=== PATIENT | male | born 1965 | race Caucasian/White ===

== ENCOUNTER 2018-07-19 20:55 | Observation (INO) ==
[2018-07-19] MEDS ORDERED: ALBUTEROL/IPRATROPIUM 3 ML NEB RESP TX STA (21:24)
[2018-07-19 21:50] LABS: ABG Base Excess 1.8 MMOL/L (-2.5-2.5); ABG Oxygen Saturation 96.4 % (95-100); ABG PCO2 38.8 MM HG (35-48); ABG PH 7.434 (7.35-7.45); ABG TCO2 22.6 MMOL/L (23-27); Allen Test Positive; Pt O2 Delivery Device Room Air
[2018-07-19 22:03] LABS: Basophils # 0.1 10*3/uL (0.0-0.2); Basophils % 0.5 % (0.0-0.8); Eosinophils # 0.1 10*3/uL (0.0-0.87); Hemoglobin 12.7 GM/DL (14.0-18.0); Immature Granulocytes % 0.5 %; Immature Granulocytes Absolute 0.05 #; Lymphocytes # 1.7 10*3/uL (1.4-4.0); Lymphocytes % 15.5 % (21.2-54.2); Mean Corpuscular HGB Conc 33.4 GM/DL (32-36); Mean Corpuscular Hemoglobin 31 PG (27-34); Mean Corpuscular Volume 93.8 FL (87-102); Mean Platelet Volume 9.9 FL (9.6-12.0); Monocytes # 0.6 10*3/uL (0.11-0.8); Monocytes % 5.4 % (1.7-12.7); Neutrophils # 8.4 10*3/uL (1.4-7.4); Neutrophils % 77.1 % (38.7-73.9); Platelet Count 190 T/CUMM (130-400); Red Blood Count 4.05 MC/CUMM (3.8-5.5); Red Cell Distribution Width 12.9 % (9.3-17.3); White Blood Count 10.9 T/CUMM (4-12)
[2018-07-19 22:24] LABS: Alanine Aminotransferase 15 U/L (16-61); Albumin 3.4 G/DL (3.4-5.0); Alkaline Phosphatase 76 U/L (45-117); Aspartate Amino Transferase 13 U/L (0-37); Bilirubin,Total < 0.39 MG/DL (0.2-1.0); Blood Urea Nitrogen 12 MG/DL (7-18); Calcium 8.3 MG/DL (8.5-10.1); Glucose 146 MG/DL (74-106); Osmolality,Calculated 283.3 MOS/KG (273-304); Potassium 3.6 MMOL/L (3.5-5.1); Sodium 141 MMOL/L (136-145); Total Protein 6.8 G/DL (6.4-8.3)
[2018-07-19] MEDS ORDERED: NITROGLYCERIN SL 0.4 MG TABLET SL STA (22:29)
[2018-07-19] MEDS ORDERED: ASPIRIN EC 325 MG TABLET PO STA (22:29)
[2018-07-20] MEDS ORDERED: ENOXAPARIN 30 MG/0.3 ML SYRINGE SUBCUT STA (00:19)
[2018-07-20] MEDS ORDERED: ENOXAPARIN 80 MG/0.8 ML SYRINGE SUBCUT ONE (00:33)
[2018-07-20] MEDS ORDERED: ONDANSETRON 4 MG/2 ML VIAL IV PRN (02:04)
[2018-07-20] MEDS ORDERED: ACETAMINOPHEN 325 MG TABLET PO PRN (02:04)
[2018-07-20 04:26] LABS: Albumin 3.5 G/DL (3.4-5.0); Bilirubin,Total 0.6 MG/DL (0.2-1.0); Calcium 8.8 MG/DL (8.5-10.1); Osmolality,Calculated 276.5 MOS/KG (273-304); Potassium 3.8 MMOL/L (3.5-5.1); Risk Ratio 3.81; Thyroid Stimulating Hormone 0.664 uIU/ml (0.358-3.74); Total Protein 6.6 G/DL (6.4-8.3); VLDL CHOLESTEROL 37.6 MG/DL
[2018-07-20] MEDS: ASPIRIN 325 MG TABLET PO SCH (10:12)
[2018-07-20] MEDS: CARVEDILOL 3.125 MG TABLET PO SCH ×2 (10:12→21:23)
[2018-07-20] MEDS: amLODIPine 5 MG TABLET PO SCH (15:05)
[2018-07-20] MEDS ORDERED: NICOTINE 14 MG/24 HR PATCH TRANSDERM PRN (15:29)
[2018-07-21] MEDS: CARVEDILOL 3.125 MG TABLET PO SCH (08:35)
[2018-07-21] MEDS: ASPIRIN 325 MG TABLET PO SCH (08:35)
[2018-07-21] MEDS: amLODIPine 5 MG TABLET PO SCH (08:35)
[2018-07-21 08:39] VITALS: BP 166/79
== END 2018-07-21 10:06 | disposition home or self-care (01) ==
LOC: N.EDINP 20:55 → N.ED 20:55 → SUATTDRO 07-20 01:02 → N.TELEN 07-20 01:45
PROVIDERS: ADMIT Internal Medicine Geriatric Medicine; ATTEND Internal Medicine Cardiovascular Disease

== ENCOUNTER 2018-08-08 19:10 | Inpatient (IN) ==
[2018-08-08 20:48] LABS: Basophils % 0.3 % (0.0-0.8); Eosinophils # 0.2 10*3/uL (0.0-0.87); Eosinophils % 1.9 % (0.00-10.9); Hematocrit 43.3 VOL% (42.0-52.0); Hemoglobin 14.2 GM/DL (14.0-18.0); Immature Granulocytes % 0.3 %; Immature Granulocytes Absolute 0.03 #; Lymphocytes # 2.6 10*3/uL (1.4-4.0); Lymphocytes % 26.9 % (21.2-54.2); Mean Corpuscular HGB Conc 32.8 GM/DL (32-36); Mean Corpuscular Hemoglobin 31 PG (27-34); Mean Corpuscular Volume 95.6 FL (87-102); Monocytes # 0.5 10*3/uL (0.11-0.8); Monocytes % 5.5 % (1.7-12.7); Neutrophils # 6.3 10*3/uL (1.4-7.4); Neutrophils % 65.1 % (38.7-73.9); Platelet Count 247 T/CUMM (130-400); Red Blood Count 4.53 MC/CUMM (3.8-5.5); Red Cell Distribution Width 12.9 % (9.3-17.3); White Blood Count 9.7 T/CUMM (4-12)
[2018-08-08 20:56] LABS: PT Patient Result 10.7 SECS; Partial Thromboplastin Time 35.8 SECS (0-40)
[2018-08-08] MEDS ORDERED: ONDANSETRON 4 MG/2 ML VIAL IV PRN (21:13)
[2018-08-08] MEDS ORDERED: MORPHINE 4 MG/1 ML VIAL IV PRN (21:13)
[2018-08-08 21:26] LABS: Alanine Aminotransferase 19 U/L (16-61); Albumin 3.5 G/DL (3.4-5.0); Alkaline Phosphatase 79 U/L (45-117); Aspartate Amino Transferase 18 U/L (0-37); Bilirubin,Total < 0.39 MG/DL (0.2-1.0); Blood Urea Nitrogen 17 MG/DL (7-18); Calcium 8.9 MG/DL (8.5-10.1); Glucose 88 MG/DL (74-106); Osmolality,Calculated 275.7 MOS/KG (273-304); Potassium 4.7 MMOL/L (3.5-5.1); Sodium 138 MMOL/L (136-145); Total Protein 6.8 G/DL (6.4-8.3)
[2018-08-09] MEDS: ENOXAPARIN 60 MG/0.6 ML SYRINGE SUBCUT SCH ×2 (05:25→17:08)
[2018-08-09] MEDS: NITROGLYCERIN 2% OINT 1 INCH/GM PACK TOP SCH ×4 (05:33→18:17)
[2018-08-09 05:48] LABS: Risk Ratio 5.48; VLDL CHOLESTEROL 54.6 MG/DL
[2018-08-09] MEDS: CARVEDILOL 3.125 MG TABLET PO SCH ×2 (10:01→17:08)
[2018-08-09] MEDS: amLODIPine 5 MG TABLET PO SCH ×2 (10:01→14:18)
[2018-08-09] MEDS: ASPIRIN EC 325 MG TABLET PO SCH ×2 (10:01→14:17)
[2018-08-09] MEDS ORDERED: CLOPIDOGREL 300 MG TABLET PO ONE (13:57)
[2018-08-09] MEDS: ROSUVASTATIN 20 MG TABLET PO SCH (14:18)
[2018-08-09] MEDS ORDERED: ATORVASTATIN 40 MG TABLET PO SCH (21:00)
[2018-08-10] MEDS: NITROGLYCERIN 2% OINT 1 INCH/GM PACK TOP SCH ×4 (01:15→17:59)
[2018-08-10] MEDS: ENOXAPARIN 60 MG/0.6 ML SYRINGE SUBCUT SCH ×2 (06:09→17:58)
[2018-08-10] MEDS: ROSUVASTATIN 20 MG TABLET PO SCH (09:56)
[2018-08-10] MEDS: ASPIRIN EC 325 MG TABLET PO SCH (09:56)
[2018-08-10] MEDS: CLOPIDOGREL 75 MG TABLET PO SCH (09:56)
[2018-08-10] MEDS: amLODIPine 5 MG TABLET PO SCH (09:56)
[2018-08-10] MEDS: buPROPion SR 150 MG TABLET PO SCH (09:59)
[2018-08-10] MEDS: NICOTINE 21 MG/24 HR PATCH TRANSDERM SCH (09:59)
[2018-08-10] MEDS: CARVEDILOL 3.125 MG TABLET PO SCH ×2 (10:00→17:59)
[2018-08-11] MEDS: NITROGLYCERIN 2% OINT 1 INCH/GM PACK TOP SCH ×4 (01:04→18:04)
[2018-08-11] MEDS: ENOXAPARIN 60 MG/0.6 ML SYRINGE SUBCUT SCH ×2 (05:44→18:00)
[2018-08-11] MEDS: ASPIRIN EC 325 MG TABLET PO SCH (09:06)
[2018-08-11] MEDS: buPROPion SR 150 MG TABLET PO SCH (09:06)
[2018-08-11] MEDS: amLODIPine 5 MG TABLET PO SCH (09:06)
[2018-08-11] MEDS: ROSUVASTATIN 20 MG TABLET PO SCH (09:06)
[2018-08-11] MEDS: NICOTINE 21 MG/24 HR PATCH TRANSDERM SCH (09:07)
[2018-08-11] MEDS: CARVEDILOL 3.125 MG TABLET PO SCH ×2 (09:07→18:00)
[2018-08-11] MEDS: CLOPIDOGREL 75 MG TABLET PO SCH (09:12)
[2018-08-12] MEDS: NITROGLYCERIN 2% OINT 1 INCH/GM PACK TOP SCH ×2 (00:48→05:40)
[2018-08-12] MEDS: ENOXAPARIN 60 MG/0.6 ML SYRINGE SUBCUT SCH (05:40)
[2018-08-12 06:30] LABS: Basophils # 0.1 10*3/uL (0.0-0.2); Basophils % 0.8 % (0.0-0.8); Eosinophils # 0.2 10*3/uL (0.0-0.87); Eosinophils % 3.8 % (0.00-10.9); Hematocrit 42.1 VOL% (42.0-52.0); Hemoglobin 13.7 GM/DL (14.0-18.0); Immature Granulocytes % 0.3 %; Immature Granulocytes Absolute 0.02 #; Lymphocytes # 2.5 10*3/uL (1.4-4.0); Lymphocytes % 40.5 % (21.2-54.2); Mean Corpuscular HGB Conc 32.5 GM/DL (32-36); Mean Corpuscular Hemoglobin 31 PG (27-34); Mean Corpuscular Volume 94.4 FL (87-102); Mean Platelet Volume 10.1 FL (9.6-12.0); Monocytes # 0.4 10*3/uL (0.11-0.8); Neutrophils # 2.9 10*3/uL (1.4-7.4); Neutrophils % 47.6 % (38.7-73.9); Platelet Count 215 T/CUMM (130-400); Red Blood Count 4.46 MC/CUMM (3.8-5.5); Red Cell Distribution Width 12.6 % (9.3-17.3); White Blood Count 6.1 T/CUMM (4-12)
[2018-08-12 06:53] LABS: Calcium 9.2 MG/DL (8.5-10.1); Osmolality,Calculated 276.4 MOS/KG (273-304); Potassium 4.1 MMOL/L (3.5-5.1)
[2018-08-12] MEDS ORDERED: diphenhydrAMINE CAP 50 MG CAPSULE PO ONE (07:27)
[2018-08-12] MEDS ORDERED: DIAZEPAM 5 MG TABLET PO ONE (07:27)
[2018-08-12] MEDS: CARVEDILOL 3.125 MG TABLET PO SCH (07:35)
[2018-08-12] MEDS: amLODIPine 5 MG TABLET PO SCH ×2 (07:37→09:22)
[2018-08-12] MEDS: CLOPIDOGREL 75 MG TABLET PO SCH (07:38)
[2018-08-12] MEDS ORDERED: LIDOCAINE 1% 20 ML VIAL ONE (07:48)
[2018-08-12] MEDS ORDERED: MIDAZOLAM 2 MG/2 ML VIAL ONE (07:49)
[2018-08-12] MEDS ORDERED: HYDROmorphone 2 MG/1 ML VIAL ONE (07:55)
[2018-08-12] MEDS: NICOTINE 21 MG/24 HR PATCH TRANSDERM SCH (09:22)
[2018-08-12] MEDS: ASPIRIN CHEW 81 MG TABLET PO SCH (09:24)
[2018-08-12] MEDS: buPROPion SR 150 MG TABLET PO SCH (09:24)
[2018-08-12] MEDS: ROSUVASTATIN 20 MG TABLET PO SCH (09:24)
[2018-08-12] MEDS: CARVEDILOL 6.25 MG TABLET PO SCH ×2 (09:37→22:09)
[2018-08-12] MEDS: ISOSORBIDE MONONITRATE 30 MG TABLET PO SCH (09:39)
[2018-08-12] MEDS ORDERED: CARVEDILOL 3.125 MG TABLET PO ONE (10:00)
[2018-08-13 04:28] LABS: Basophils # 0.1 10*3/uL (0.0-0.2); Basophils % 0.7 % (0.0-0.8); Eosinophils # 0.3 10*3/uL (0.0-0.87); Eosinophils % 3.9 % (0.00-10.9); Hemoglobin 12.1 GM/DL (14.0-18.0); Immature Granulocytes % 0.4 %; Immature Granulocytes Absolute 0.03 #; Lymphocytes # 2.6 10*3/uL (1.4-4.0); Lymphocytes % 37.9 % (21.2-54.2); Mean Corpuscular HGB Conc 33.6 GM/DL (32-36); Mean Corpuscular Hemoglobin 32 PG (27-34); Mean Platelet Volume 10.3 FL (9.6-12.0); Monocytes # 0.5 10*3/uL (0.11-0.8); Neutrophils # 3.4 10*3/uL (1.4-7.4); Neutrophils % 50.1 % (38.7-73.9); Platelet Count 195 T/CUMM (130-400); Red Blood Count 3.79 MC/CUMM (3.8-5.5); Red Cell Distribution Width 12.7 % (9.3-17.3); White Blood Count 6.9 T/CUMM (4-12)
[2018-08-13 04:46] LABS: Calcium 8.5 MG/DL (8.5-10.1); Osmolality,Calculated 276.5 MOS/KG (273-304)
[2018-08-13 04:50] LABS: Blood Urea Nitrogen 14 MG/DL (7-18); Calcium 8.5 MG/DL (8.5-10.1); Glucose 86 MG/DL (74-106); Osmolality,Calculated 274.7 MOS/KG (273-304); Potassium 4.1 MMOL/L (3.5-5.1); Sodium 138 MMOL/L (136-145)
[2018-08-13 04:59] LABS: Troponin I 0.093 NG/ML (0.00-0.045)
[2018-08-13] MEDS: NICOTINE 21 MG/24 HR PATCH TRANSDERM SCH (09:52)
[2018-08-13] MEDS: CARVEDILOL 6.25 MG TABLET PO SCH (09:52)
[2018-08-13] MEDS: amLODIPine 5 MG TABLET PO SCH (09:52)
[2018-08-13] MEDS: buPROPion SR 150 MG TABLET PO SCH (09:52)
[2018-08-13] MEDS: ROSUVASTATIN 20 MG TABLET PO SCH ×2 (09:52→21:06)
[2018-08-13] MEDS: ASPIRIN CHEW 81 MG TABLET PO SCH (09:52)
[2018-08-13] MEDS: ISOSORBIDE MONONITRATE 30 MG TABLET PO SCH (09:52)
[2018-08-13] MEDS: CARVEDILOL 12.5 MG TABLET PO SCH (21:06)
[2018-08-14 05:06] LABS: Basophils # 0.1 10*3/uL (0.0-0.2); Basophils % 0.8 % (0.0-0.8); Eosinophils # 0.3 10*3/uL (0.0-0.87); Eosinophils % 4.3 % (0.00-10.9); Hematocrit 35.3 VOL% (42.0-52.0); Hemoglobin 11.5 GM/DL (14.0-18.0); Immature Granulocytes % 0.4 %; Immature Granulocytes Absolute 0.03 #; Lymphocytes # 2.5 10*3/uL (1.4-4.0); Lymphocytes % 33.9 % (21.2-54.2); Mean Corpuscular HGB Conc 32.6 GM/DL (32-36); Mean Corpuscular Hemoglobin 31 PG (27-34); Mean Corpuscular Volume 95.4 FL (87-102); Mean Platelet Volume 10.3 FL (9.6-12.0); Monocytes # 0.5 10*3/uL (0.11-0.8); Monocytes % 7.3 % (1.7-12.7); Neutrophils # 3.9 10*3/uL (1.4-7.4); Neutrophils % 53.3 % (38.7-73.9); Platelet Count 194 T/CUMM (130-400); Red Cell Distribution Width 12.7 % (9.3-17.3); White Blood Count 7.3 T/CUMM (4-12)
[2018-08-14 05:15] LABS: Calcium 8.3 MG/DL (8.5-10.1); Osmolality,Calculated 278.4 MOS/KG (273-304); Potassium 4.1 MMOL/L (3.5-5.1)
[2018-08-14] MEDS: ASPIRIN CHEW 81 MG TABLET PO SCH (09:01)
[2018-08-14] MEDS: amLODIPine 5 MG TABLET PO SCH (09:01)
[2018-08-14] MEDS: buPROPion SR 150 MG TABLET PO SCH (09:01)
[2018-08-14] MEDS: ISOSORBIDE MONONITRATE 30 MG TABLET PO SCH (09:02)
[2018-08-14] MEDS: NICOTINE 21 MG/24 HR PATCH TRANSDERM SCH (09:02)
[2018-08-14] MEDS: CARVEDILOL 12.5 MG TABLET PO SCH ×2 (09:02→20:46)
[2018-08-14] MEDS: ROSUVASTATIN 20 MG TABLET PO SCH (20:46)
[2018-08-15 05:35] LABS: Basophils # 0.1 10*3/uL (0.0-0.2); Basophils % 0.6 % (0.0-0.8); Eosinophils # 0.3 10*3/uL (0.0-0.87); Eosinophils % 3.7 % (0.00-10.9); Hematocrit 33.8 VOL% (42.0-52.0); Hemoglobin 11.3 GM/DL (14.0-18.0); Immature Granulocytes % 0.4 %; Immature Granulocytes Absolute 0.03 #; Lymphocytes # 2.4 10*3/uL (1.4-4.0); Lymphocytes % 30.3 % (21.2-54.2); Mean Corpuscular HGB Conc 33.4 GM/DL (32-36); Mean Corpuscular Hemoglobin 32 PG (27-34); Mean Corpuscular Volume 94.9 FL (87-102); Mean Platelet Volume 10.3 FL (9.6-12.0); Monocytes # 0.6 10*3/uL (0.11-0.8); Neutrophils # 4.5 10*3/uL (1.4-7.4); Platelet Count 186 T/CUMM (130-400); Red Blood Count 3.56 MC/CUMM (3.8-5.5); Red Cell Distribution Width 12.4 % (9.3-17.3); White Blood Count 7.8 T/CUMM (4-12)
[2018-08-15 05:40] LABS: Calcium 8.5 MG/DL (8.5-10.1); Osmolality,Calculated 279.4 MOS/KG (273-304); Potassium 4.2 MMOL/L (3.5-5.1)
[2018-08-15] MEDS: buPROPion SR 150 MG TABLET PO SCH (09:16)
[2018-08-15] MEDS: CARVEDILOL 12.5 MG TABLET PO SCH ×2 (09:16→21:57)
[2018-08-15] MEDS: NICOTINE 21 MG/24 HR PATCH TRANSDERM SCH (09:16)
[2018-08-15] MEDS: amLODIPine 5 MG TABLET PO SCH (09:16)
[2018-08-15] MEDS: ASPIRIN CHEW 81 MG TABLET PO SCH (09:16)
[2018-08-15] MEDS: ISOSORBIDE MONONITRATE 30 MG TABLET PO SCH (09:16)
[2018-08-15] MEDS ORDERED: GLUCAGON 1 MG VIAL IM PRN (10:02)
[2018-08-15] MEDS ORDERED: DEXTROSE 50% 25 GM/50 ML SYRINGE IV PRN (10:02)
[2018-08-15 11:08] LABS: ABG Base Excess 0.4 MMOL/L (-2.5-2.5); ABG HCO3 24.8 MMOL/L (20-26); ABG Oxygen Saturation 97.1 % (95-100); ABG PCO2 39.4 MM HG (35-48); ABG TCO2 21.9 MMOL/L (23-27); Allen Test Positive; Pt O2 Delivery Device Room Air
[2018-08-15] MEDS: SODIUM CHLORIDE 0.9% 1,000 ML IV SCH (15:39)
[2018-08-15] MEDS: ROSUVASTATIN 20 MG TABLET PO SCH (21:57)
[2018-08-15] MEDS: CHLORHEXIDINE 0.12% ORAL RINSE 60 ML BOTTLE SWISH/SPIT SCH (21:57)
[2018-08-16] MEDS: CHLORHEXIDINE 0.12% ORAL RINSE 60 ML BOTTLE SWISH/SPIT SCH ×2 (08:57→20:56)
[2018-08-16] MEDS: ISOSORBIDE MONONITRATE 30 MG TABLET PO SCH (08:58)
[2018-08-16] MEDS: NICOTINE 21 MG/24 HR PATCH TRANSDERM SCH (08:58)
[2018-08-16] MEDS: ASPIRIN CHEW 81 MG TABLET PO SCH (08:58)
[2018-08-16] MEDS: amLODIPine 5 MG TABLET PO SCH (08:58)
[2018-08-16] MEDS: CARVEDILOL 12.5 MG TABLET PO SCH ×2 (08:58→20:56)
[2018-08-16] MEDS: buPROPion SR 150 MG TABLET PO SCH (09:03)
[2018-08-16] MEDS: SODIUM CHLORIDE 0.9% 1,000 ML IV SCH (11:47)
[2018-08-16] MEDS: ROSUVASTATIN 20 MG TABLET PO SCH (20:56)
[2018-08-17 04:12] LABS: Calcium 8.4 MG/DL (8.5-10.1); Osmolality,Calculated 278.4 MOS/KG (273-304); Potassium 4.1 MMOL/L (3.5-5.1)
[2018-08-17] MEDS: ISOSORBIDE MONONITRATE 30 MG TABLET PO SCH (09:13)
[2018-08-17] MEDS: amLODIPine 5 MG TABLET PO SCH (09:13)
[2018-08-17] MEDS: CARVEDILOL 12.5 MG TABLET PO SCH ×2 (09:13→20:50)
[2018-08-17] MEDS: NICOTINE 21 MG/24 HR PATCH TRANSDERM SCH (09:13)
[2018-08-17] MEDS: buPROPion SR 150 MG TABLET PO SCH (09:13)
[2018-08-17] MEDS: ASPIRIN CHEW 81 MG TABLET PO SCH (09:13)
[2018-08-17] MEDS: CHLORHEXIDINE 0.12% ORAL RINSE 60 ML BOTTLE SWISH/SPIT SCH ×2 (09:14→20:52)
[2018-08-17] MEDS: CLORAZEPATE 3.75 MG TABLET PO SCH ×3 (12:20→20:51)
[2018-08-17] MEDS: SODIUM CHLORIDE 0.9% 1,000 ML IV SCH (12:20)
[2018-08-17] MEDS: ROSUVASTATIN 20 MG TABLET PO SCH (20:49)
[2018-08-18 05:14] LABS: Basophils # 0.1 10*3/uL (0.0-0.2); Basophils % 0.8 % (0.0-0.8); Eosinophils # 0.2 10*3/uL (0.0-0.87); Eosinophils % 2.8 % (0.00-10.9); Hematocrit 34.2 VOL% (42.0-52.0); Hemoglobin 11.4 GM/DL (14.0-18.0); Immature Granulocytes % 0.3 %; Immature Granulocytes Absolute 0.02 #; Lymphocytes % 26.4 % (21.2-54.2); Mean Corpuscular HGB Conc 33.3 GM/DL (32-36); Mean Corpuscular Hemoglobin 32 PG (27-34); Mean Corpuscular Volume 94.5 FL (87-102); Mean Platelet Volume 10.1 FL (9.6-12.0); Monocytes # 0.6 10*3/uL (0.11-0.8); Neutrophils # 4.8 10*3/uL (1.4-7.4); Neutrophils % 61.7 % (38.7-73.9); Platelet Count 215 T/CUMM (130-400); Red Blood Count 3.62 MC/CUMM (3.8-5.5); Red Cell Distribution Width 12.5 % (9.3-17.3); White Blood Count 7.7 T/CUMM (4-12)
[2018-08-18 05:23] LABS: Calcium 8.5 MG/DL (8.5-10.1); Osmolality,Calculated 280.4 MOS/KG (273-304); Potassium 4.3 MMOL/L (3.5-5.1)
[2018-08-18] MEDS: amLODIPine 5 MG TABLET PO SCH (08:56)
[2018-08-18] MEDS: ISOSORBIDE MONONITRATE 30 MG TABLET PO SCH (08:56)
[2018-08-18] MEDS: CARVEDILOL 12.5 MG TABLET PO SCH ×2 (08:56→21:30)
[2018-08-18] MEDS: buPROPion SR 150 MG TABLET PO SCH (08:56)
[2018-08-18] MEDS: NICOTINE 21 MG/24 HR PATCH TRANSDERM SCH (08:56)
[2018-08-18] MEDS: CLORAZEPATE 3.75 MG TABLET PO SCH ×4 (08:56→21:30)
[2018-08-18] MEDS: ASPIRIN CHEW 81 MG TABLET PO SCH (08:56)
[2018-08-18] MEDS: CHLORHEXIDINE 0.12% ORAL RINSE 60 ML BOTTLE SWISH/SPIT SCH ×2 (08:59→21:30)
[2018-08-18] MEDS ORDERED: CEFUROXIME INJ 1,500 MG in SYRINGE 1 EACH IV ONE (10:02)
[2018-08-18] MEDS: CHLORHEXIDINE 4% SOLN 118 ML BOTTLE TOP SCH ×2 (15:40→21:30)
[2018-08-18] MEDS: ROSUVASTATIN 20 MG TABLET PO SCH (21:29)
[2018-08-19] MEDS ORDERED: PAPAVERINE 60 MG/2 ML VIAL ONE (04:25)
[2018-08-19] MEDS ORDERED: VANCOMYCIN 1,000 MG VIAL ONE (04:26)
[2018-08-19] MEDS: CHLORHEXIDINE 4% SOLN 118 ML BOTTLE TOP SCH ×2 (05:00→19:26)
[2018-08-19 05:32] LABS: Calcium 8.7 MG/DL (8.5-10.1); Osmolality,Calculated 281.3 MOS/KG (273-304); Potassium 3.6 MMOL/L (3.5-5.1)
[2018-08-19] MEDS: CARVEDILOL 12.5 MG TABLET PO SCH ×2 (05:39→19:26)
[2018-08-19] MEDS: amLODIPine 5 MG TABLET PO SCH ×2 (05:39→19:26)
[2018-08-19] MEDS: ISOSORBIDE MONONITRATE 30 MG TABLET PO SCH ×2 (05:39→19:26)
[2018-08-19] MEDS ORDERED: FAMOTIDINE 20 MG TABLET PO ONE (06:00)
[2018-08-19] MEDS ORDERED: CEFUROXIME INJ 1,500 MG in SYRINGE 1 EACH IV ONE (06:00)
[2018-08-19] MEDS ORDERED: DIAZEPAM 5 MG TABLET PO ONE (06:00)
[2018-08-19] MEDS ORDERED: LIDOCAINE 2% TOP JELLY 20 ML VIAL INTRAURETH ONE ×2 (07:09→07:15)
[2018-08-19 07:47] LABS: ABG Base Excess -1.7 MMOL/L (-2.5-2.5); ABG Oxygen Saturation 99.8 % (95-100); ABG PCO2 51.5 MM HG (35-48); ABG TCO2 23.1 MMOL/L (23-27); Glucose Heart Surgery 101 MG/DL (74-106); Hematocrit Heart Surgery 33.1 PERCENT (42-52); Hemoglobin Heart Surgery 10.7 G/DL (14.0-18.0); Ionized Calcium Arterial 1.18 MMOL/L (1.21-1.46); PCO2 Patient Temp Arterial 51.5 MMHG; Patient Temperature 37 CELCIUS; Potassium Heart/CVR 4.3 MMOL/L (3.5-5.1); Sodium Heart/CVR 138 MMOL/L (135-145)
[2018-08-19 08:00] LABS: Apearance,Urine Slightly Hazy (Clear); Bilirubin,Urine Negative (Negative); Blood, Urine Large mg/dL (Negative); Glucose,Urine (UA) Negative (Negative); Ketones,Urine Negative (Negative); Mucus,Urine Occasional /LPF (Occasional); Nitrite,Urine Negative (Negative); Protein,Urine 30 MG/DL; RBC,Urine 1222 /HPF (0-4); Squamous Epithelial Cell,Urine Occasional /HPF (0-10); Urine Color Yellow (Yellow); Urine Specific Gravity 1.024 (1.001-1.035)
[2018-08-19] MEDS ORDERED: PHENYLEPHRINE DRIP 40 MG/250 ML PREMIX IV ONE (08:04)
[2018-08-19] MEDS ORDERED: NITROPRUSSIDE 50 MG/2 ML VIAL ONE (08:04)
[2018-08-19] MEDS ORDERED: POTASSIUM CHLORIDE RIDER 100 ML IV ONE (08:05)
[2018-08-19] MEDS ORDERED: ALBUMIN 5% 12.5 GM/250 ML VIAL IV ONE ×2 (08:05→08:06)
[2018-08-19 09:17] LABS: Hematocrit Heart Surgery 22.3 PERCENT (42-52); Hemoglobin Heart Surgery 7.1 G/DL (14.0-18.0); PCO2 Patient Temp Venous 42.6 MM HG; PH Patient Temp Venous 7.375; Potassium Heart/CVR 5.8 MMOL/L (3.5-5.1); VBG Base Excess -0.1 MEQ/L (0-4); VBG HCO3 24.1 MEQ/L (24-28); VBG Oxygen Saturation 76.8 %; VBG PCO2 46.9 MMHG (41-51); VBG PH 7.347; VBG PO2 41.4 MMHG (17-40)
[2018-08-19] MEDS ORDERED: CALCIUM CHLORIDE 1,000 MG/10 ML VIAL IV ONE ×2 (09:18→12:50)
[2018-08-19] MEDS ORDERED: PHENYLEPHRINE DRIP 20 MG/250 ML PREMIX IV ONE (09:18)
[2018-08-19] MEDS ORDERED: SEVOFLURANE 1 UNIT/15 MINUTE INH ONE (09:18)
[2018-08-19] MEDS ORDERED: MINERAL OIL/PETROLATUM OPH OINT 3.5 GM TUBE ONE (09:19)
[2018-08-19] MEDS ORDERED: EPINEPHrine 1 MG/ML VIAL ONE (09:19)
[2018-08-19] MEDS ORDERED: SUFentanil 50 MCG/ML AMP ONE (09:19)
[2018-08-19] MEDS ORDERED: SUFentanil 250 MCG/5 ML AMP ONE (09:19)
[2018-08-19] MEDS ORDERED: MIDAZOLAM 10 MG/2 ML VIAL ONE (09:19)
[2018-08-19] MEDS ORDERED: VECURONIUM 10 MG VIAL IV ONE (09:19)
[2018-08-19] MEDS ORDERED: ETOMIDATE 40 MG/20 ML VIAL IV ONE (09:20)
[2018-08-19] MEDS ORDERED: AMINOCAPROIC ACID 5,000 MG/20 ML VIAL ONE (09:20)
[2018-08-19] MEDS ORDERED: HEPARIN/NACL 0.9% 2 UNITS/ML 500 ML IV ONE (09:20)
[2018-08-19] MEDS ORDERED: PHENYLEPHRINE 1 MG/10 ML SYRINGE IV ONE (09:20)
[2018-08-19] MEDS ORDERED: SODIUM CHLORIDE 0.9% 1,000 ML IV ONE (09:20)
[2018-08-19] MEDS ORDERED: SODIUM CHLORIDE 0.9% 250 ML IV ONE (09:20)
[2018-08-19] MEDS ORDERED: LACTATED RINGERS 1,000 ML IV ONE (09:20)
[2018-08-19 09:52] LABS: Hematocrit Heart Surgery 24.7 PERCENT (42-52); Hemoglobin Heart Surgery 7.9 G/DL (14.0-18.0); PCO2 Patient Temp Venous 35.4 MM HG; PH Patient Temp Venous 7.439; Potassium Heart/CVR 5.6 MMOL/L (3.5-5.1); VBG Base Excess 0.2 MEQ/L (0-4); VBG HCO3 24.4 MEQ/L (24-28); VBG Oxygen Saturation 81.7 %; VBG PCO2 40.9 MMHG (41-51); VBG PH 7.396; VBG PO2 44.3 MMHG (17-40)
[2018-08-19 10:21] LABS: Hemoglobin Heart Surgery 8.7 G/DL (14.0-18.0); PCO2 Patient Temp Venous 39.2 MM HG; PH Patient Temp Venous 7.403; PO2 Patient Temp Venous 45.3 MM HG; Potassium Heart/CVR 4.9 MMOL/L (3.5-5.1); VBG Base Excess -0.1 MEQ/L (0-4); VBG HCO3 24.1 MEQ/L (24-28); VBG Oxygen Saturation 83.1 %; VBG PCO2 39.2 MMHG (41-51); VBG PH 7.403; VBG PO2 45.3 MMHG (17-40)
[2018-08-19] MEDS ORDERED: ALBUMIN 25% 25 GM/100 ML VIAL IV ONE (11:24)
[2018-08-19] MEDS ORDERED: MANNITOL 100 GM/500 ML BAG IV ONE (11:25)
[2018-08-19] MEDS ORDERED: DEXTROSE 5% KCL 20 MEQ 20 MEQ/1,000 ML BAG IV ONE (11:26)
[2018-08-19] MEDS ORDERED: FUROSEMIDE 20 MG/2 ML VIAL ONE (11:26)
[2018-08-19] MEDS ORDERED: MAGNESIUM SULFATE 10 GM/20 ML VIAL IV ONE (11:26)
[2018-08-19] MEDS ORDERED: HEPARIN 10,000 UNIT/10 ML VIAL ONE (11:26)
[2018-08-19] MEDS ORDERED: SODIUM BICARBONATE 50 MEQ/50 ML SYRINGE IV ONE (11:27)
[2018-08-19] MEDS ORDERED: methylPREDNISolone SOD SUC 1,000 MG/8 ML VIAL ONE (11:27)
[2018-08-19] MEDS ORDERED: PROTAMINE SULFATE 50 MG/5 ML VIAL IV ONE ×3 (11:27→13:06)
[2018-08-19 11:36] LABS: ABG Base Excess -1.3 MMOL/L (-2.5-2.5); ABG HCO3 23.8 MMOL/L (20-26); ABG Oxygen Saturation 98.2 % (95-100); ABG PCO2 41.5 MM HG (35-48); ABG PH 7.377 (7.35-7.45); ABG TCO2 25.1 MMOL/L (23-27); Glucose Heart Surgery 115 MG/DL (74-106); Hemoglobin Heart Surgery 8.6 G/DL (14.0-18.0); Ionized Calcium Arterial 1.59 MMOL/L (1.21-1.46); PCO2 Patient Temp Arterial 41.5 MMHG; PH Patient Temp Arterial 7.377; Patient Temperature 37 CELCIUS; Sodium Heart/CVR 135 MMOL/L (135-145)
[2018-08-19] MEDS ORDERED: GLYCOPYRROLATE 0.4 MG/2 ML VIAL ONE (12:50)
[2018-08-19] MEDS ORDERED: MORPHINE 10 MG/1 ML VIAL IV PRN (13:05)
[2018-08-19] MEDS ORDERED: POTASSIUM CHLORIDE RIDER 20 MEQ in PREMIX 1 EACH IV PRN (13:05)
[2018-08-19] MEDS ORDERED: NITROPRUSSIDE 100 MG in DEXTROSE 5% 250 ML IV PRN (13:05)
[2018-08-19] MEDS ORDERED: MIDAZOLAM 10 MG/2 ML VIAL IV PRN (13:05)
[2018-08-19] MEDS ORDERED: MAGNESIUM SULF RIDER 4 GM in PREMIX 1 EACH IV PRN (13:05)
[2018-08-19] MEDS ORDERED: INSULIN REGULAR DRIP 100 ML IV SCH (13:05)
[2018-08-19] MEDS ORDERED: POTASSIUM CHLORIDE RIDER 10 MEQ in PREMIX 1 EACH IV PRN (13:05)
[2018-08-19] MEDS ORDERED: VECURONIUM 10 MG VIAL IV PRN ×2 (13:05)
[2018-08-19] MEDS ORDERED: ONDANSETRON 4 MG/2 ML VIAL IV PRN (13:05)
[2018-08-19] MEDS ORDERED: CALCIUM CHLORIDE 1,000 MG/10 ML SYRINGE IV PRN (13:05)
[2018-08-19] MEDS ORDERED: PHENYLEPHRINE DRIP 40 MG/250 ML PREMIX IV PRN (13:05)
[2018-08-19] MEDS ORDERED: MAGNESIUM SULF RIDER 2 GM in PREMIX 1 EACH IV PRN (13:05)
[2018-08-19] MEDS ORDERED: INSULIN REGULAR 100 UNIT/ML IV PRN (13:05)
[2018-08-19] MEDS ORDERED: ACETAMINOPHEN 650 MG SUPP RECTAL PRN (13:05)
[2018-08-19] MEDS ORDERED: SODIUM CHLORIDE 0.45% 1,000 ML IV SCH ×2 (13:05)
[2018-08-19] MEDS ORDERED: DEXTROSE 50% 25 GM/50 ML SYRINGE IV PRN ×2 (13:05)
[2018-08-19] MEDS ORDERED: INSULIN REGULAR 100 UNIT/ML IV ONE (13:05)
[2018-08-19 13:20] LABS: ABG Base Excess -3.4 MMOL/L (-2.5-2.5); ABG HCO3 21.6 MMOL/L (20-26); ABG Oxygen Saturation 99.5 % (95-100); ABG PCO2 50.5 MM HG (35-48); ABG PH 7.279 (7.35-7.45); ABG TCO2 21.9 MMOL/L (23-27); Glucose Heart Surgery 128 MG/DL (74-106); Hematocrit Heart Surgery 30.7 PERCENT (42-52); Hemoglobin Heart Surgery 9.9 G/DL (14.0-18.0); Potassium Heart/CVR 4.5 MMOL/L (3.5-5.1)
[2018-08-19 13:23] LABS: Basophils # 0.1 10*3/uL (0.0-0.2); Basophils % 0.5 % (0.0-0.8); Eosinophils # 0.1 10*3/uL (0.0-0.87); Eosinophils % 0.5 % (0.00-10.9); Hematocrit 27.4 VOL% (42.0-52.0); Hemoglobin 9.2 GM/DL (14.0-18.0); Immature Granulocytes % 0.7 %; Immature Granulocytes Absolute 0.09 #; Lymphocytes # 1.8 10*3/uL (1.4-4.0); Lymphocytes % 13.4 % (21.2-54.2); Mean Corpuscular HGB Conc 33.6 GM/DL (32-36); Mean Corpuscular Hemoglobin 32 PG (27-34); Mean Corpuscular Volume 95.5 FL (87-102); Monocytes # 0.7 10*3/uL (0.11-0.8); Monocytes % 5.1 % (1.7-12.7); Neutrophils # 10.6 10*3/uL (1.4-7.4); Neutrophils % 79.8 % (38.7-73.9); Platelet Count 213 T/CUMM (130-400); Red Blood Count 2.87 MC/CUMM (3.8-5.5); Red Cell Distribution Width 12.6 % (9.3-17.3); White Blood Count 13.3 T/CUMM (4-12)
[2018-08-19 13:30] LABS: INR 1.3; PT Patient Result 13.6 SECS; Partial Thromboplastin Time 26.6 SECS (0-40)
[2018-08-19 13:41] LABS: Albumin 2.9 G/DL (3.4-5.0); Bilirubin,Total 0.6 MG/DL (0.2-1.0); Calcium 9.3 MG/DL (8.5-10.1); Osmolality,Calculated 285.1 MOS/KG (273-304); Potassium 4.7 MMOL/L (3.5-5.1); Total Protein 5.1 G/DL (6.4-8.3)
[2018-08-19 13:49] LABS: CKMB % 7.3 %
[2018-08-19 13:51] LABS: Troponin I 7.39 NG/ML (0.00-0.045)
[2018-08-19] MEDS: ALBUTEROL/IPRATROPIUM 3 ML NEB RESP TX SCH ×2 (14:01→19:47)
[2018-08-19 14:41] LABS: ABG Base Excess -4.2 MMOL/L (-2.5-2.5); ABG HCO3 20.9 MMOL/L (20-26); ABG Oxygen Saturation 98.3 % (95-100); ABG PCO2 52.1 MM HG (35-48); ABG TCO2 21.3 MMOL/L (23-27); Glucose Heart Surgery 139 MG/DL (74-106); Hematocrit Heart Surgery 34.2 PERCENT (42-52); Hemoglobin Heart Surgery 11.1 G/DL (14.0-18.0); Potassium Heart/CVR 4.9 MMOL/L (3.5-5.1)
[2018-08-19] MEDS: ALBUMIN 5% 12.5 GM in PREMIX 1 EACH IV PRN ×4 (14:53→18:32)
[2018-08-19] MEDS: KETOROLAC 30 MG/1 ML VIAL IV SCH ×2 (14:55→19:06)
[2018-08-19 15:54] LABS: ABG Base Excess -3.8 MMOL/L (-2.5-2.5); ABG HCO3 21.2 MMOL/L (20-26); ABG PCO2 44.3 MM HG (35-48); ABG PH 7.311 (7.35-7.45); ABG TCO2 20.6 MMOL/L (23-27); Glucose Heart Surgery 143 MG/DL (74-106); Hematocrit Heart Surgery 30.5 PERCENT (42-52); Hemoglobin Heart Surgery 9.9 G/DL (14.0-18.0)
[2018-08-19 17:02] LABS: ABG Base Excess -4.5 MMOL/L (-2.5-2.5); ABG HCO3 20.7 MMOL/L (20-26); ABG Oxygen Saturation 98.6 % (95-100); ABG PCO2 39.7 MM HG (35-48); ABG PH 7.332 (7.35-7.45); ABG TCO2 19.4 MMOL/L (23-27); Glucose Heart Surgery 162 MG/DL (74-106); Hematocrit Heart Surgery 29.8 PERCENT (42-52); Hemoglobin Heart Surgery 9.6 G/DL (14.0-18.0); Potassium Heart/CVR 4.8 MMOL/L (3.5-5.1)
[2018-08-19] MEDS ORDERED: DILTIAZEM 50 MG/10 ML VIAL IV ONE (17:24)
[2018-08-19] MEDS ORDERED: AMIODARONE INJ 150 MG in DEXTROSE 5% 100 ML IV ONE (17:26)
[2018-08-19] MEDS ORDERED: AMIODARONE 150 MG/3 ML VIAL ONE (17:27)
[2018-08-19] MEDS ORDERED: dilTIAZem Drip 125 MG/125 ML PREMIX IV SCH (17:30)
[2018-08-19] MEDS ORDERED: AMIODARONE INJ 450 MG in DEXTROSE 5% 241 ML IV SCH (17:30)
[2018-08-19] MEDS: MIDAZOLAM 2 MG/2 ML VIAL IV PRN (17:33)
[2018-08-19] MEDS: LACTATED RINGERS 250 ML IV PRN ×2 (17:57→17:58)
[2018-08-19] MEDS: SODIUM CHLORIDE 0.9% 1,000 ML IV SCH (19:25)
[2018-08-19] MEDS: NICOTINE 21 MG/24 HR PATCH TRANSDERM SCH (19:26)
[2018-08-19] MEDS: ASPIRIN CHEW 81 MG TABLET PO SCH (19:26)
[2018-08-19] MEDS: CHLORHEXIDINE 0.12% ORAL RINSE 60 ML BOTTLE SWISH/SPIT SCH (19:27)
[2018-08-19] MEDS: buPROPion SR 150 MG TABLET PO SCH (19:27)
[2018-08-19] MEDS: CLORAZEPATE 3.75 MG TABLET PO SCH (19:27)
[2018-08-19] MEDS ORDERED: FUROSEMIDE 40 MG/4 ML VIAL IV ONE (19:55)
[2018-08-19] MEDS ORDERED: FUROSEMIDE 40 MG/4 ML VIAL IV PRN (20:17)
[2018-08-19] MEDS: MORPHINE 4 MG/1 ML VIAL IV PRN (21:00)
[2018-08-19 21:14] LABS: ABG Base Excess -5.7 MMOL/L (-2.5-2.5); ABG HCO3 19.7 MMOL/L (20-26); ABG Oxygen Saturation 99.2 % (95-100); ABG PCO2 37.3 MM HG (35-48); ABG TCO2 17.9 MMOL/L (23-27); Glucose Heart Surgery 165 MG/DL (74-106); Hemoglobin Heart Surgery 10.3 G/DL (14.0-18.0); Potassium Heart/CVR 4.4 MMOL/L (3.5-5.1)
[2018-08-19] MEDS: CEFUROXIME INJ 1,500 MG in SYRINGE 1 EACH IV SCH (21:14)
[2018-08-19 21:48] LABS: Troponin I 29.7 NG/ML (0.00-0.045)
[2018-08-19 22:00] LABS: ABG Base Excess -4.6 MMOL/L (-2.5-2.5); ABG HCO3 20.6 MMOL/L (20-26); ABG Oxygen Saturation 99.5 % (95-100); ABG PH 7.352 (7.35-7.45); ABG TCO2 18.7 MMOL/L (23-27); Glucose Heart Surgery 163 MG/DL (74-106); Hematocrit Heart Surgery 31.2 PERCENT (42-52); Hemoglobin Heart Surgery 10.1 G/DL (14.0-18.0); Potassium Heart/CVR 4.3 MMOL/L (3.5-5.1)
[2018-08-19 22:58] LABS: ABG Base Excess -4.1 MMOL/L (-2.5-2.5); ABG HCO3 21.1 MMOL/L (20-26); ABG Oxygen Saturation 99.2 % (95-100); ABG PCO2 41.1 MM HG (35-48); ABG PH 7.329 (7.35-7.45); ABG TCO2 19.8 MMOL/L (23-27); Glucose Heart Surgery 165 MG/DL (74-106); Hematocrit Heart Surgery 31.4 PERCENT (42-52); Hemoglobin Heart Surgery 10.1 G/DL (14.0-18.0); Potassium Heart/CVR 4.4 MMOL/L (3.5-5.1)
[2018-08-19 23:32] LABS: ABG Base Excess -3.7 MMOL/L (-2.5-2.5); ABG HCO3 21.3 MMOL/L (20-26); ABG Oxygen Saturation 99.3 % (95-100); ABG PH 7.366 (7.35-7.45); ABG TCO2 19.3 MMOL/L (23-27); Glucose Heart Surgery 167 MG/DL (74-106); Hematocrit Heart Surgery 31.2 PERCENT (42-52); Hemoglobin Heart Surgery 10.1 G/DL (14.0-18.0); Potassium Heart/CVR 4.3 MMOL/L (3.5-5.1)
[2018-08-20] MEDS ORDERED: AMIODARONE INJ 450 MG in DEXTROSE 5% 241 ML IV SCH
[2018-08-20 00:02] LABS: ABG Base Excess -3.2 MMOL/L (-2.5-2.5); ABG HCO3 21.7 MMOL/L (20-26); ABG Oxygen Saturation 99.6 % (95-100); ABG PCO2 34.8 MM HG (35-48); ABG PH 7.391 (7.35-7.45); ABG TCO2 19.3 MMOL/L (23-27); Glucose Heart Surgery 166 MG/DL (74-106); Hematocrit Heart Surgery 30.6 PERCENT (42-52); Hemoglobin Heart Surgery 9.9 G/DL (14.0-18.0); Potassium Heart/CVR 4.3 MMOL/L (3.5-5.1)
[2018-08-20] MEDS: ALBUTEROL/IPRATROPIUM 3 ML NEB RESP TX SCH ×7 (00:04→22:57)
[2018-08-20] MEDS: CHLORHEXIDINE 0.12% ORAL RINSE 60 ML BOTTLE SWISH/SPIT SCH ×3 (00:50→21:22)
[2018-08-20] MEDS: KETOROLAC 30 MG/1 ML VIAL IV SCH ×2 (00:52→07:21)
[2018-08-20 01:10] LABS: ABG Base Excess -3.5 MMOL/L (-2.5-2.5); ABG HCO3 21.5 MMOL/L (20-26); ABG Oxygen Saturation 99.3 % (95-100); ABG PCO2 38.9 MM HG (35-48); ABG PH 7.354 (7.35-7.45); ABG TCO2 19.8 MMOL/L (23-27); Glucose Heart Surgery 164 MG/DL (74-106); Potassium Heart/CVR 4.3 MMOL/L (3.5-5.1)
[2018-08-20] MEDS: MORPHINE 4 MG/1 ML VIAL IV PRN ×3 (02:12→11:07)
[2018-08-20 04:24] LABS: ABG Base Excess -3.6 MMOL/L (-2.5-2.5); ABG HCO3 21.4 MMOL/L (20-26); ABG Oxygen Saturation 97.9 % (95-100); ABG PCO2 38.4 MM HG (35-48); ABG PH 7.356 (7.35-7.45); ABG TCO2 19.7 MMOL/L (23-27); Glucose Heart Surgery 162 MG/DL (74-106); Hematocrit Heart Surgery 30.4 PERCENT (42-52); Hemoglobin Heart Surgery 9.8 G/DL (14.0-18.0); Potassium Heart/CVR 4.3 MMOL/L (3.5-5.1)
[2018-08-20 04:43] LABS: Basophils % 0.1 % (0.0-0.8); Hematocrit 27.2 VOL% (42.0-52.0); Hemoglobin 9.2 GM/DL (14.0-18.0); Immature Granulocytes % 0.6 %; Immature Granulocytes Absolute 0.08 #; Lymphocytes # 1.4 10*3/uL (1.4-4.0); Lymphocytes % 10.2 % (21.2-54.2); Mean Corpuscular HGB Conc 33.8 GM/DL (32-36); Mean Corpuscular Hemoglobin 31 PG (27-34); Mean Corpuscular Volume 92.8 FL (87-102); Mean Platelet Volume 10.7 FL (9.6-12.0); Monocytes # 0.7 10*3/uL (0.11-0.8); Monocytes % 4.7 % (1.7-12.7); Neutrophils # 11.9 10*3/uL (1.4-7.4); Neutrophils % 84.4 % (38.7-73.9); Platelet Count 126 T/CUMM (130-400); Red Blood Count 2.93 MC/CUMM (3.8-5.5); Red Cell Distribution Width 14.4 % (9.3-17.3); White Blood Count 14.1 T/CUMM (4-12)
[2018-08-20 04:52] LABS: Albumin 3.7 G/DL (3.4-5.0); Bilirubin,Direct 0.18 MG/DL (0.0-0.20); Bilirubin,Total 0.5 MG/DL (0.2-1.0); Calcium 8.4 MG/DL (8.5-10.1); Osmolality,Calculated 289.1 MOS/KG (273-304); Potassium 4.5 MMOL/L (3.5-5.1); Total Protein 5.8 G/DL (6.4-8.3)
[2018-08-20 05:17] LABS: CKMB % 8.4 %
[2018-08-20 05:21] LABS: Troponin I 39.6 NG/ML (0.00-0.045)
[2018-08-20] MEDS: INSULIN REGULAR 100 UNIT/ML SUBCUT SCH ×2 (08:24→14:07)
[2018-08-20] MEDS: MIDAZOLAM 2 MG/2 ML VIAL IV PRN (09:00)
[2018-08-20] MEDS: CEFUROXIME INJ 1,500 MG in SYRINGE 1 EACH IV SCH (11:24)
[2018-08-20] MEDS ORDERED: CEFUROXIME INJ 1,500 MG in SYRINGE 1 EACH IV ONE (11:30)
[2018-08-20] MEDS ORDERED: DEXTROSE 50% 25 GM/50 ML VIAL IV PRN (12:33)
[2018-08-20] MEDS ORDERED: ONDANSETRON 4 MG/2 ML VIAL IV PRN (12:33)
[2018-08-20] MEDS ORDERED: DEXTROSE 50% 25 GM/50 ML SYRINGE IV PRN (12:33)
[2018-08-20] MEDS ORDERED: MAGNESIUM SULF RIDER 2 GM in PREMIX 1 EACH IV PRN (12:33)
[2018-08-20] MEDS ORDERED: GLUCAGON 1 MG VIAL IM PRN ×2 (12:33)
[2018-08-20] MEDS ORDERED: MAGNESIUM SULF RIDER 4 GM in PREMIX 1 EACH IV PRN (12:33)
[2018-08-20] MEDS ORDERED: POTASSIUM CHLORIDE 20 MEQ TABLET PO PRN (12:33)
[2018-08-20] MEDS ORDERED: SODIUM CHLOR 0.45% KCL 20 MEQ 20 MEQ/1,000 ML BAG IV SCH (12:33)
[2018-08-20] MEDS ORDERED: ZALEPLON 5 MG CAPSULE PO PRN (12:33)
[2018-08-20] MEDS ORDERED: ACETAMINOPHEN 325 MG TABLET PO PRN (12:33)
[2018-08-20] MEDS ORDERED: MAGNESIUM HYDROXIDE SUSP 30 ML UDCUP PO PRN (12:33)
[2018-08-20] MEDS: CLORAZEPATE 3.75 MG TABLET PO SCH ×3 (13:41→21:16)
[2018-08-20] MEDS: AMIODARONE 200 MG TABLET PO SCH ×2 (13:41→21:16)
[2018-08-20] MEDS: KETOROLAC 15 MG/1 ML VIAL IV SCH ×2 (13:42→21:18)
[2018-08-20] MEDS: oxyCODONE/ACETAMINOPHEN 5-325 MG TABLET PO PRN ×3 (16:30→22:41)
[2018-08-20] MEDS: ROSUVASTATIN 20 MG TABLET PO SCH (21:16)
[2018-08-20] MEDS: CARVEDILOL 12.5 MG TABLET PO SCH (21:17)
[2018-08-21] MEDS: KETOROLAC 15 MG/1 ML VIAL IV SCH ×5 (00:45→23:39)
[2018-08-21] MEDS: ALBUTEROL/IPRATROPIUM 3 ML NEB RESP TX SCH ×5 (03:08→20:10)
[2018-08-21 05:30] LABS: Basophils % 0.1 % (0.0-0.8); Hemoglobin 8.9 GM/DL (14.0-18.0); Immature Granulocytes % 1.2 %; Immature Granulocytes Absolute 0.17 #; Lymphocytes % 7.2 % (21.2-54.2); Mean Corpuscular Hemoglobin 31 PG (27-34); Mean Corpuscular Volume 95.1 FL (87-102); Mean Platelet Volume 10.6 FL (9.6-12.0); Monocytes # 0.7 10*3/uL (0.11-0.8); Neutrophils # 12.4 10*3/uL (1.4-7.4); Neutrophils % 86.5 % (38.7-73.9); Platelet Count 141 T/CUMM (130-400); Red Blood Count 2.84 MC/CUMM (3.8-5.5); Red Cell Distribution Width 14.3 % (9.3-17.3); White Blood Count 14.3 T/CUMM (4-12)
[2018-08-21 05:40] LABS: Alanine Aminotransferase 36 U/L (16-61); Albumin 3.1 G/DL (3.4-5.0); Alkaline Phosphatase 38 U/L (45-117); Aspartate Amino Transferase 69 U/L (0-37); Bilirubin,Direct < 0.100 MG/DL (0.0-0.20); Bilirubin,Indirect 0.3 MG/DL (0.0-1.0); Blood Urea Nitrogen 27 MG/DL (7-18); CKMB % 3.6 %; Calcium 8.3 MG/DL (8.5-10.1); Glucose 128 MG/DL (74-106); Osmolality,Calculated 283.5 MOS/KG (273-304); Potassium 4.5 MMOL/L (3.5-5.1); Sodium 139 MMOL/L (136-145); Total Protein 5.5 G/DL (6.4-8.3)
[2018-08-21] MEDS ORDERED: FUROSEMIDE 40 MG/4 ML VIAL IV ONE (06:00)
[2018-08-21] MEDS: oxyCODONE/ACETAMINOPHEN 5-325 MG TABLET PO PRN ×3 (06:15→21:45)
[2018-08-21] MEDS ORDERED: ASPIRIN 325 MG TABLET PO SCH (09:00)
[2018-08-21] MEDS: CLORAZEPATE 3.75 MG TABLET PO SCH ×4 (09:32→21:45)
[2018-08-21] MEDS: FERROUS SULFATE 325 MG TABLET PO SCH (09:33)
[2018-08-21] MEDS: PANTOPRAZOLE 40 MG TABLET PO SCH (09:33)
[2018-08-21] MEDS: ASPIRIN EC 325 MG TABLET PO SCH (09:33)
[2018-08-21] MEDS: CHLORHEXIDINE 0.12% ORAL RINSE 60 ML BOTTLE SWISH/SPIT SCH ×2 (09:33→21:56)
[2018-08-21] MEDS: CARVEDILOL 12.5 MG TABLET PO SCH (09:33)
[2018-08-21] MEDS: DOCUSATE SODIUM 100 MG CAPSULE PO SCH (09:33)
[2018-08-21] MEDS: AMIODARONE 200 MG TABLET PO SCH ×2 (09:33→21:46)
[2018-08-21] MEDS: ALUMINUM/MAGNES/SIMETH MAX STR 30 ML UDCUP PO PRN (11:56)
[2018-08-21] MEDS: CARVEDILOL 25 MG TABLET PO SCH (21:45)
[2018-08-21] MEDS: ROSUVASTATIN 20 MG TABLET PO SCH (21:45)
[2018-08-22] MEDS: ALBUTEROL/IPRATROPIUM 3 ML NEB RESP TX SCH ×7 (00:19→23:53)
[2018-08-22 05:10] LABS: Albumin 2.9 G/DL (3.4-5.0); Bilirubin,Direct 0.12 MG/DL (0.0-0.20); Bilirubin,Indirect 0.3 MG/DL (0.0-1.0); Bilirubin,Total 0.4 MG/DL (0.2-1.0); CKMB % 1.7 %; Calcium 8.3 MG/DL (8.5-10.1); Osmolality,Calculated 282.5 MOS/KG (273-304); Potassium 4.4 MMOL/L (3.5-5.1); Total Protein 5.5 G/DL (6.4-8.3)
[2018-08-22 06:00] LABS: Troponin I 10.5 NG/ML (0.00-0.045)
[2018-08-22] MEDS: KETOROLAC 15 MG/1 ML VIAL IV SCH ×4 (06:42→23:34)
[2018-08-22 08:11] LABS: Basophils % 0.1 % (0.0-0.8); Hematocrit 28.5 VOL% (42.0-52.0); Hemoglobin 9.3 GM/DL (14.0-18.0); Immature Granulocytes % 0.7 %; Lymphocytes # 1.6 10*3/uL (1.4-4.0); Mean Corpuscular HGB Conc 32.6 GM/DL (32-36); Mean Corpuscular Hemoglobin 31 PG (27-34); Mean Corpuscular Volume 95.6 FL (87-102); Mean Platelet Volume 10.3 FL (9.6-12.0); Monocytes # 0.9 10*3/uL (0.11-0.8); Neutrophils # 10.7 10*3/uL (1.4-7.4); Neutrophils % 80.2 % (38.7-73.9); Platelet Count 136 T/CUMM (130-400); Red Blood Count 2.98 MC/CUMM (3.8-5.5); Red Cell Distribution Width 14.1 % (9.3-17.3); White Blood Count 13.4 T/CUMM (4-12)
[2018-08-22] MEDS: CLORAZEPATE 3.75 MG TABLET PO SCH ×4 (09:20→21:15)
[2018-08-22] MEDS: DOCUSATE SODIUM 100 MG CAPSULE PO SCH (09:20)
[2018-08-22] MEDS: CARVEDILOL 25 MG TABLET PO SCH ×2 (09:20→21:15)
[2018-08-22] MEDS: CHLORHEXIDINE 0.12% ORAL RINSE 60 ML BOTTLE SWISH/SPIT SCH ×2 (09:21→21:15)
[2018-08-22] MEDS: FERROUS SULFATE 325 MG TABLET PO SCH (09:21)
[2018-08-22] MEDS: PANTOPRAZOLE 40 MG TABLET PO SCH (09:21)
[2018-08-22] MEDS: ASPIRIN EC 325 MG TABLET PO SCH (09:21)
[2018-08-22] MEDS: AMIODARONE 200 MG TABLET PO SCH ×2 (09:21→21:14)
[2018-08-22] MEDS: oxyCODONE/ACETAMINOPHEN 5-325 MG TABLET PO PRN ×2 (14:05→21:15)
[2018-08-22] MEDS: ALUMINUM/MAGNES/SIMETH MAX STR 30 ML UDCUP PO PRN (17:37)
[2018-08-22] MEDS: ROSUVASTATIN 20 MG TABLET PO SCH (21:14)
[2018-08-23] MEDS: ALBUTEROL/IPRATROPIUM 3 ML NEB RESP TX SCH ×6 (03:38→23:18)
[2018-08-23 04:15] LABS: Basophils % 0.1 % (0.0-0.8); Eosinophils # 0.1 10*3/uL (0.0-0.87); Eosinophils % 0.5 % (0.00-10.9); Hematocrit 28.9 VOL% (42.0-52.0); Hemoglobin 9.4 GM/DL (14.0-18.0); Immature Granulocytes % 0.8 %; Immature Granulocytes Absolute 0.08 #; Lymphocytes # 2.5 10*3/uL (1.4-4.0); Lymphocytes % 25.8 % (21.2-54.2); Mean Corpuscular HGB Conc 32.5 GM/DL (32-36); Mean Corpuscular Hemoglobin 31 PG (27-34); Mean Corpuscular Volume 96.3 FL (87-102); Mean Platelet Volume 10.1 FL (9.6-12.0); Monocytes # 0.6 10*3/uL (0.11-0.8); Neutrophils # 6.5 10*3/uL (1.4-7.4); Neutrophils % 66.8 % (38.7-73.9); Platelet Count 155 T/CUMM (130-400); Red Cell Distribution Width 13.5 % (9.3-17.3); White Blood Count 9.7 T/CUMM (4-12)
[2018-08-23 04:47] LABS: Calcium 8.2 MG/DL (8.5-10.1); Osmolality,Calculated 290.1 MOS/KG (273-304); Potassium 4.3 MMOL/L (3.5-5.1)
[2018-08-23] MEDS ORDERED: LACTATED RINGERS 500 ML IV ONE (04:59)
[2018-08-23] MEDS: KETOROLAC 15 MG/1 ML VIAL IV SCH (08:35)
[2018-08-23] MEDS: CHLORHEXIDINE 0.12% ORAL RINSE 60 ML BOTTLE SWISH/SPIT SCH ×2 (08:45→22:02)
[2018-08-23] MEDS: ASPIRIN EC 325 MG TABLET PO SCH (08:45)
[2018-08-23] MEDS: PANTOPRAZOLE 40 MG TABLET PO SCH (08:45)
[2018-08-23] MEDS: DOCUSATE SODIUM 100 MG CAPSULE PO SCH (08:45)
[2018-08-23] MEDS: CLORAZEPATE 3.75 MG TABLET PO SCH ×4 (08:45→22:02)
[2018-08-23] MEDS: FERROUS SULFATE 325 MG TABLET PO SCH (08:45)
[2018-08-23] MEDS: oxyCODONE/ACETAMINOPHEN 5-325 MG TABLET PO PRN ×4 (08:48→22:02)
[2018-08-23] MEDS: METOPROLOL SUCCINATE XL 25 MG TABLET PO SCH (15:24)
[2018-08-23] MEDS: ROSUVASTATIN 20 MG TABLET PO SCH (22:02)
[2018-08-24] MEDS: ALBUTEROL/IPRATROPIUM 3 ML NEB RESP TX SCH ×6 (03:11→23:20)
[2018-08-24] MEDS: oxyCODONE/ACETAMINOPHEN 5-325 MG TABLET PO PRN ×5 (03:56→21:46)
[2018-08-24 05:04] LABS: Basophils % 0.3 % (0.0-0.8); Eosinophils # 0.2 10*3/uL (0.0-0.87); Eosinophils % 1.7 % (0.00-10.9); Hematocrit 28.8 VOL% (42.0-52.0); Hemoglobin 9.5 GM/DL (14.0-18.0); Immature Granulocytes % 1.2 %; Immature Granulocytes Absolute 0.12 #; Lymphocytes # 2.7 10*3/uL (1.4-4.0); Lymphocytes % 26.3 % (21.2-54.2); Mean Corpuscular Hemoglobin 31 PG (27-34); Mean Platelet Volume 10.3 FL (9.6-12.0); Monocytes # 0.7 10*3/uL (0.11-0.8); Monocytes % 7.2 % (1.7-12.7); Neutrophils # 6.5 10*3/uL (1.4-7.4); Neutrophils % 63.3 % (38.7-73.9); Platelet Count 189 T/CUMM (130-400); Red Blood Count 3.03 MC/CUMM (3.8-5.5); Red Cell Distribution Width 13.2 % (9.3-17.3); White Blood Count 10.3 T/CUMM (4-12)
[2018-08-24 05:35] LABS: Alanine Aminotransferase 53 U/L (16-61); Albumin 2.8 G/DL (3.4-5.0); Alkaline Phosphatase 47 U/L (45-117); Aspartate Amino Transferase 34 U/L (0-37); Bilirubin,Indirect 0.8 MG/DL (0.0-1.0); Blood Urea Nitrogen 27 MG/DL (7-18); Glucose 87 MG/DL (74-106); Osmolality,Calculated 282.4 MOS/KG (273-304); Potassium 4.1 MMOL/L (3.5-5.1); Sodium 140 MMOL/L (136-145); Total Protein 5.5 G/DL (6.4-8.3)
[2018-08-24] MEDS: METOPROLOL SUCCINATE XL 25 MG TABLET PO SCH (08:50)
[2018-08-24] MEDS: DOCUSATE SODIUM 100 MG CAPSULE PO SCH (08:50)
[2018-08-24] MEDS: FERROUS SULFATE 325 MG TABLET PO SCH (08:50)
[2018-08-24] MEDS: PANTOPRAZOLE 40 MG TABLET PO SCH (08:50)
[2018-08-24] MEDS: ASPIRIN EC 325 MG TABLET PO SCH (08:50)
[2018-08-24] MEDS: CLORAZEPATE 3.75 MG TABLET PO SCH ×4 (08:50→21:36)
[2018-08-24] MEDS: CHLORHEXIDINE 0.12% ORAL RINSE 60 ML BOTTLE SWISH/SPIT SCH ×2 (08:51→21:36)
[2018-08-24] MEDS: ROSUVASTATIN 20 MG TABLET PO SCH (21:36)
[2018-08-25] MEDS: ALBUTEROL/IPRATROPIUM 3 ML NEB RESP TX SCH ×6 (03:31→23:09)
[2018-08-25] MEDS: oxyCODONE/ACETAMINOPHEN 5-325 MG TABLET PO PRN ×3 (05:10→20:09)
[2018-08-25 05:51] LABS: Basophils % 0.3 % (0.0-0.8); Eosinophils # 0.3 10*3/uL (0.0-0.87); Eosinophils % 3.2 % (0.00-10.9); Hematocrit 27.9 VOL% (42.0-52.0); Hemoglobin 9.2 GM/DL (14.0-18.0); Immature Granulocytes % 1.2 %; Immature Granulocytes Absolute 0.11 #; Lymphocytes # 2.4 10*3/uL (1.4-4.0); Lymphocytes % 25.8 % (21.2-54.2); Mean Corpuscular Hemoglobin 31 PG (27-34); Mean Corpuscular Volume 95.2 FL (87-102); Mean Platelet Volume 10.4 FL (9.6-12.0); Monocytes # 0.8 10*3/uL (0.11-0.8); Monocytes % 8.3 % (1.7-12.7); Neutrophils # 5.7 10*3/uL (1.4-7.4); Neutrophils % 61.2 % (38.7-73.9); Platelet Count 198 T/CUMM (130-400); Red Blood Count 2.93 MC/CUMM (3.8-5.5); Red Cell Distribution Width 13.2 % (9.3-17.3); White Blood Count 9.4 T/CUMM (4-12)
[2018-08-25 06:14] LABS: Albumin 2.7 G/DL (3.4-5.0); Bilirubin,Direct 0.1 MG/DL (0.0-0.20); Bilirubin,Indirect 0.7 MG/DL (0.0-1.0); Bilirubin,Total 0.8 MG/DL (0.2-1.0); CKMB % 3.8 %; Calcium 8.1 MG/DL (8.5-10.1); Osmolality,Calculated 285.1 MOS/KG (273-304); Potassium 4.4 MMOL/L (3.5-5.1); Total Protein 5.6 G/DL (6.4-8.3); Troponin I 3.08 NG/ML (0.00-0.045)
[2018-08-25] MEDS: FERROUS SULFATE 325 MG TABLET PO SCH (08:45)
[2018-08-25] MEDS: ASPIRIN EC 325 MG TABLET PO SCH (08:45)
[2018-08-25] MEDS: PANTOPRAZOLE 40 MG TABLET PO SCH (08:45)
[2018-08-25] MEDS: DOCUSATE SODIUM 100 MG CAPSULE PO SCH (08:45)
[2018-08-25] MEDS: CLORAZEPATE 3.75 MG TABLET PO SCH ×4 (08:45→22:35)
[2018-08-25] MEDS: CHLORHEXIDINE 0.12% ORAL RINSE 60 ML BOTTLE SWISH/SPIT SCH ×2 (08:46→22:35)
[2018-08-25] MEDS: METOPROLOL SUCCINATE XL 25 MG TABLET PO SCH (08:47)
[2018-08-25] MEDS: ROSUVASTATIN 20 MG TABLET PO SCH (22:35)
[2018-08-26] MEDS: oxyCODONE/ACETAMINOPHEN 5-325 MG TABLET PO PRN ×2 (01:26→10:06)
[2018-08-26] MEDS: ALBUTEROL/IPRATROPIUM 3 ML NEB RESP TX SCH ×3 (04:06→11:44)
[2018-08-26 05:12] LABS: Basophils % 0.2 % (0.0-0.8); Eosinophils # 0.3 10*3/uL (0.0-0.87); Eosinophils % 2.2 % (0.00-10.9); Hematocrit 26.6 VOL% (42.0-52.0); Hemoglobin 8.7 GM/DL (14.0-18.0); Immature Granulocytes % 1.1 %; Immature Granulocytes Absolute 0.12 #; Lymphocytes # 1.9 10*3/uL (1.4-4.0); Lymphocytes % 16.7 % (21.2-54.2); Mean Corpuscular HGB Conc 32.7 GM/DL (32-36); Mean Corpuscular Hemoglobin 31 PG (27-34); Mean Corpuscular Volume 95.7 FL (87-102); Mean Platelet Volume 10.1 FL (9.6-12.0); Monocytes # 1.1 10*3/uL (0.11-0.8); Monocytes % 9.5 % (1.7-12.7); Neutrophils % 70.3 % (38.7-73.9); Platelet Count 207 T/CUMM (130-400); Red Blood Count 2.78 MC/CUMM (3.8-5.5); Red Cell Distribution Width 13.2 % (9.3-17.3); White Blood Count 11.4 T/CUMM (4-12)
[2018-08-26 05:27] LABS: Calcium 8.1 MG/DL (8.5-10.1); Osmolality,Calculated 274.8 MOS/KG (273-304); Potassium 4.6 MMOL/L (3.5-5.1)
[2018-08-26 07:31] VITALS: BP 93/57
[2018-08-26] MEDS: ASPIRIN EC 325 MG TABLET PO SCH (10:03)
[2018-08-26] MEDS: DOCUSATE SODIUM 100 MG CAPSULE PO SCH (10:03)
[2018-08-26] MEDS: PANTOPRAZOLE 40 MG TABLET PO SCH (10:03)
[2018-08-26] MEDS: CLORAZEPATE 3.75 MG TABLET PO SCH (10:03)
[2018-08-26] MEDS: METOPROLOL SUCCINATE XL 25 MG TABLET PO SCH (10:03)
[2018-08-26] MEDS: FERROUS SULFATE 325 MG TABLET PO SCH (10:03)
[2018-08-26] MEDS: CHLORHEXIDINE 0.12% ORAL RINSE 60 ML BOTTLE SWISH/SPIT SCH (10:03)
== END 2018-08-26 12:10 | disposition home health service (06) | DRG 234 ==
LOC: EDUNIT# → EDBD → N.ED 19:10 → N.EDINP 21:13 → SUATTDRO 21:13 → N.TELEN 22:15 → N.CVR 08-19 12:39 → N.TELES 08-20 12:11
PROVIDERS: ADMIT Internal Medicine Cardiovascular Disease; ATTEND Internal Medicine Cardiovascular Disease
PROC: CLCCHCL (ICD-10-PCS; 2018-08-12 09:15)